=== PATIENT | male | born 1975 | race Caucasian/White ===

== ENCOUNTER → 2016-03-16 12:41 | Outpatient (CLI) | payer OTHER ==
[2014-11-17 18:08] VITALS: BMI 30.2
[~2016-03-16 12:41] MED LIST: ADVAIR 250/501 DISK INH; ARAVA10 MG PO; BYSTOLIC5 MG PO; CELEXA40 MG PO; CLEOCIN HCL300 MG PO; DOXYCYCLINE HY100 M2 PO; ELAVIL25 MG PO; FORTAMET500 MG/BOT PO; HYDROCODON-ACE1 EAC7 PO; HYDROCODONE-APA1 TAB PO; MOBIC7.5 MG PO; NEURONTIN 300300 MG PO; NEXIUM40 MG PO; SEROQUEL XR400 M1 PO
== END | disposition home or self-care (01) ==
LOC: D.MRI 12:41
DX: M24.152 Other articular cartilage disorders, left hip (principal)

== ENCOUNTER → 2016-08-05 08:17 | Outpatient (CLI) | payer MEDICARE ==
[2014-11-17 18:08] VITALS: BMI 30.2
== END | disposition home or self-care (01) ==
LOC: D.MRI 08:00
DX: M25.551 Pain in right hip (principal)

== ENCOUNTER → 2016-09-26 15:03 | Outpatient (CLI) | payer MEDICARE ==
[2014-11-17 18:08] VITALS: BMI 30.2
== END | disposition home or self-care (01) ==
LOC: D.MRI 15:00
DX: M25.562 Pain in left knee (principal)

== ENCOUNTER → 2017-10-03 08:41 | Outpatient (CLI) | payer MEDICARE ==
[2014-11-17 18:08] VITALS: BMI 30.2
== END | disposition home or self-care (01) ==
LOC: D.MRI 08:41
DX: M25.551 Pain in right hip (principal)

== ENCOUNTER → 2017-11-14 09:45 | Outpatient (CLI) | payer MEDICARE ==
[2014-11-17 18:08] VITALS: BMI 30.2
== END | disposition home or self-care (01) ==
LOC: D.CT 09:45
DX: R10.32 Left lower quadrant pain (principal); D64.9 Anemia, unspecified

== ENCOUNTER → 2018-08-07 08:48 | Outpatient (CLI) | payer MEDICARE ==
[2014-11-17 18:08] VITALS: BMI 30.2
== END | disposition home or self-care (01) ==
LOC: D.RAD 08:48
PROVIDERS: ATTEND Internal Medicine Gastroenterology
DX: R13.10 Dysphagia, unspecified (principal)

== ENCOUNTER → 2018-08-15 10:53 | Outpatient (CLI) | payer MEDICARE ==
[2014-11-17 18:08] VITALS: BMI 30.2
== END | disposition home or self-care (01) ==
LOC: D.US 10:53 → D.NM 13:00
PROVIDERS: ATTEND Internal Medicine Gastroenterology
DX: R10.11 Right upper quadrant pain (principal)

== ENCOUNTER → 2018-08-16 08:00 | Outpatient (CLI) | payer OTHER ==
[2014-11-17 18:08] VITALS: BMI 30.2
== END | disposition home or self-care (01) ==
LOC: D.NM 08:00
PROVIDERS: ATTEND Internal Medicine Gastroenterology
DX: R10.11 Right upper quadrant pain (principal)